=== PATIENT | male | born 1980 | race Caucasian/White ===

== ENCOUNTER → 2023-09-01 | Outpatient (CLI) | payer MEDICARE, MEDICAID, SELFPAY ==
--- NOTE | 2023-09-01 14:48 | RAD_ITS ---
STUDY: X-RAY - LEFT SHOULDER REASON FOR EXAM: Male, 42 years old. Bilateral shoulder pain TECHNIQUE: 4 view(s) of the shoulder. COMPARISON: None. FINDINGS: Normal glenohumeral articulation. Normal acromioclavicular joint. Normal acromion. Prior ORIF of the mid clavicular fracture. There is good alignment. The fracture is healed. Normal humeral head and visualized proximal humerus. The soft tissue structures are unremarkable. Normal visualized pulmonary apex. RAD/Shoulder min 2 Views IMPRESSION: Status post ORIF of the left midclavicular fracture. No acute abnormality is seen. Electronically Signed: Estrada Portillo MD at 15:29 EDT ,
--- NOTE | 2023-09-01 14:50 | RAD_ITS ---
STUDY: X-RAY - RIGHT SHOULDER REASON FOR EXAM: Male, 42 years old. SHOULDER PAIN TECHNIQUE: 4 view(s) of the shoulder. COMPARISON: None. FINDINGS: Normal glenohumeral articulation. Normal acromioclavicular joint. Normal acromion. Normal humeral head and visualized proximal humerus. The soft tissue structures are unremarkable. Normal visualized pulmonary apex. RAD/Shoulder min 2 Views IMPRESSION: Normal x-ray examination of the shoulder. Electronically Signed: Estrada Portillo MD at 15:15 EDT ,
== END | disposition home or self-care (01) ==
LOC: RAD 14:46
PROVIDERS: PCP Nurse Practitioner; Referring Provider Nurse Practitioner; Visit Provider Nurse Practitioner
DX: M25.511 Pain in right shoulder (principal); M25.512 Pain in left shoulder
CPT/HCPCS: 73030

== ENCOUNTER 2023-12-09 12:48 | Emergency (ER) | payer MEDICARE, MEDICAID, SELFPAY ==
[2023-12-09 12:48] VITALS: BP 125/83; PULSE 104; RESP 22; TEMP 37.2; O2SAT 94; BMI 29.2
--- NOTE | 2023-12-09 13:01 | EKG12_ITS ---
Test Reason : SOB Blood Pressure : / mmHG Vent. Rate : 090 BPM Atrial Rate : 090 BPM P-R Int : 162 ms QRS Dur : 074 ms QT Int : 320 ms P-R-T Axes : 080 037 037 degrees QTc Int : 391 ms Normal sinus rhythm Low voltage QRS Borderline ECG Confirmed by CLARISSA BRUCE, ZOILA ([id number]), assignment editor ANDRES IBARRA ([id number]) on 12/10/2023 1:25:35 PM Referred By: Confirmed By:ZOILA ROMO MD
--- NOTE | 2023-12-09 13:02 | EDS_ITS ---
HPI History of Present Illness Chief Complaint: Shortness of Breath Detail of Chief Complaint: Shortness of breath Informant: patient Narrative Narrative: Patient presents to the emergency department with complaint of shortness of breath that started at a week and a half ago. Describes a cough that at times is productive of some yellow phlegm. He said some nasal congestion. He denies fever. He had some chills. Patient does have history of asthma. He is a smoker. Denies sick contacts. Denies chest pain. [facility] Medical History (Updated 12/09/23 @ 14:[address] Nanci Kirk, DO) Aortic valve stenosis Atherosclerotic heart disease of [place] coronary artery without angina pectoris History of CVA (cerebrovascular accident) Leukemia Heart murmur Hypertension Heart disease Hyperlipemia Asthma Home Medications ?Medication ?Instructions ?Recorded ?Last Taken ?Type nitroglycerin 0.4 mg sublingual mg sublingual PRN 06/03/23 Unknown History tablet albuterol sulfate 90 mcg/actuation 2 puff inhalation Q4-6H PRN 09/02/23 Unknown Rx aerosol inhaler shortness of breath or wheezing #6.7 grams atorvastatin 40 mg tablet 40 mg PO QDAY #90 tabs 09/02/23 Unknown Rx duloxetine 60 mg capsule,delayed 60 mg PO DAILY #90 caps 09/02/23 Unknown Rx release metoprolol succinate 25 mg 25 mg PO QDAY #90 tabs 09/02/23 Unknown Rx tablet,extended release 24 hr omeprazole 40 mg capsule,delayed 40 mg PO QDAY #90 caps 09/02/23 Unknown Rx release doxycycline monohydrate 100 mg 100 mg PO BID #20 CAPSULES 12/09/23 Unknown Rx capsule prednisone 20 mg tablet 20 mg PO BID #10 tabs 12/09/23 Unknown Rx Allergy/AdvReac Type Severity Reaction Status Date / Time aspirin (From Racheal Aspirin) Allergy Intermediate hives Verified 12/09/23 12:49 Surgical History No history of previous surgery Social History adopted: No household members: other housing: other current occupational status: disabled pets and animals: No Smoking Status: Current every day smoker tobacco type: cigarettes Tobacco: How many years used: 22 alcohol intake: never substance use type: does not use caffeine: Yes (2) Type: coffee frequency: does not exercise do you feel safe at home: Yes ROS ROS ED Review of Systems ROS Unobtainable: other Constitutional Constitutional ED: Reports chills and lethargy; Denies fever(s), sweats or weight loss Eyes Eyes: Denies blurry vision, change in vision or diplopia ENT ENT ED: Denies rhinorrhea or sore throat Cardiovascular Cardiovascular: Denies chest pain, orthopnea or racing heartbeat Respiratory/Chest Respiratory/Chest: Reports cough, dyspnea and dyspnea on exertion; Denies orthopnea or sputum Gastrointestinal Gastrointestinal: Denies abdominal pain, diarrhea, nausea or vomiting Genitourinary Genitourinary ED: Denies dysuria, hematuria or urinary frequency Musculoskeletal Musculoskeletal: Denies arthralgias, back pain, myalgias or neck pain Integumentary Denies abscess, Abrasions or rash Neurologic Neurologic: Denies headache(s) or weakness Psychiatric Psychiatric: Denies anxiety, depression or suicidal thoughts Endocrine Endocrinology: Denies polydipsia, polyphagia or polyuria Hematologic/Lymphatic Hematologic/Lymphatic: Denies easy bleeding, easy bruising or lymphadenopathy Allergic/Immunologic Allergic/Immunologic ED: Denies mouth swelling, tongue swelling or urticaria EXAM Physical Exam Const Vital Signs: 12/09/23 12:48 12/09/23 13:21 12/09/23 13:24 Temperature 99 F Temperature Source Temporal Pulse Rate 104 H 92 Respiratory Rate 22 H 26 H Respiratory Effort Respiratory Pattern Tachypnea Blood Pressure 125/83 H Blood Pressure Mean 97 Pulse Ox 94 Oxygen Delivery Method Room Air Room Air 12/09/23 13:34 Temperature Temperature Source Pulse Rate Respiratory Rate Respiratory Effort Short of Breath Respiratory Pattern Tachypnea Blood Pressure Blood Pressure Mean Pulse Ox Oxygen Delivery Method Positive well nourished and well developed General Appearance ED: well developed and NAD HEENT Reports TM's clear and moist mucous membranes normocephalic and atraumatic; Negative for trauma or tenderness Tympanic Membrane ED: Yes TM's clear Eyes PERRL and EOMs intact bilaterally General Eye ED: Negative for pale conjunctiva or scleral icterus Neck no lymphadenopathy, supple and no JVD General: Negative for tenderness Chest Wall inspection of chest normal and palpation of chest normal Chest: Negative for tenderness Resp No normal respiratory effort and No clear to auscultation bilaterally Resp Narrative: Mild tachypnea, diminished breath sounds bilaterally with expiratory wheezes throughout. No accessory muscle use or retraction. Effort and Inspection: Negative for respiratory distress or pain with movement Auscultation: Negative for rhonchi, wheezes or diminished lung sounds Cardio regular rate, regular rhythm, S1 normal heart sound, S2 normal heart sound and no murmurs Peripheral Pulses: pulses 2+ throughout GI normal to inspection, nondistended, normoactive bowel sounds, soft to palpation, non-tender, non-distended and no masses Back/Spine no CVA tenderness and no thoracic nor lumbar tenderness Extremity normal to inspection General Extremety ED: Negative for edema General Extremity: Negative for edema Neuro oriented x3, CN's II-XII intact bilaterally, no sensory deficits noted and gait normal Sensorium / Orientation: awake, alert, oriented to person, oriented to place and oriented to time Motor Exam: strength 5/5 throughout and strength abnormal Psych mental status grossly normal Skin no rashes or lesions noted and no wounds MDM MDM MDM Narrative Medical decision making narrative: Patient presents with increasing shortness of breath for about a week and a half. He has had a cough. Has had some chills. In the differential would be asthma exacerbation versus asthmatic bronchitis versus pneumonia. He is having no chest pain. Low suspicion for PE. Given his lung exam and significant wheezing suspect this is asthma or reactive airway disease related to infection. CBC with differential showing a 10.5 with hemoglobin 14.5 and platelet count 283. Chemistries unremarkable. Lactate normal at 1.9. COVID flu and RSV testing was negative. 1 view chest x-ray was unremarkable. After treatment with aerosols and Solu-Medrol feeling much improved. Lung exams improved with just some wheezes noted. He feels markedly improved this point will discharge to home with prescription for a walk with his manager bank within next 3 to 5 days. To return to the emergency department if increasing shortness of breath or condition should worsen anyway Lab Data Attestation: I reviewed the patient's lab results. Labs: Laboratory Results - last 24 hr 12/09/23 13:10 WBC 10.5 RBC 4.98 Hgb 14.5 Hct 44.8 MCV 90.0 MCH 29.1 MCHC 32.4 RDW Std Deviation 45.9 H RDW Coeff of Terrance 14.0 Plt Count 283 MPV 9.7 Immature Gran % (Auto) 0.300 Neut % (Auto) 66.8 Lymph % (Auto) 18.6 L [place] % (Auto) 8.2 Eos % (Auto) 5.3 H Baso % (Auto) 0.8 Absolute Neuts (auto) 7.0 Absolute Lymphs (auto) 1.96 Nucleated RBC % 0 Sodium 137 Potassium 3.8 Chloride 104 Carbon Dioxide 27.0 Anion Gap 6 BUN 10 Creatinine 0.81 Estim Creat Clear Calc 122.25 Est GFR (MDRD) Af Amer 133 Est GFR (MDRD) Non-Af 110 BUN/Creatinine Ratio 12.3 Glucose 93 Lactic Acid 1.9 Calcium 9.5 Radiography Diagnostic Testing: Clinical Impression(s) from Imaging Studies Chest X-Ray 12/09/23 13:34 IMPRESSION: No radiographic evidence of acute cardiopulmonary disease. Electronically Signed: Russell Cox MD at 13:50 EDT , 1 view chest x-ray obtained interpreted by myself as no evidence of infiltrate or pneumothorax or acute disease process. Mild hyperinflation EKG Initial EKG: Attestation: I personally reviewed and interpreted this EKG as follows: Comments: Sinus rhythm with ventricular rate of 90 bpm with no acute ST segment changes Discharge Plan Triage Chief Complaint: Shortness of Breath ED Provider: Nanci Kirk Dx/Rx/DC Orders Clinical Impression: Asthmatic bronchitis Instructions: ED Bronchitis with Wheezing (Adult) Prescriptions: New doxycycline monohydrate 100 mg capsule 100 mg PO BID Qty: 20 0RF prednisone 20 mg tablet 20 mg PO BID Qty: 10 0RF No Action nitroglycerin 0.4 mg tablet, sublingual sublingual PRN Patient Comments: place 1 tablet under the tongue if needed every 5 minutes for peace... (REFER TO PRESCRIPTION NOTES). duloxetine 60 mg capsule,delayed release(DR/EC) 60 mg PO DAILY Qty: 90 0RF metoprolol succinate 25 mg tablet extended release 24 hr 25 mg PO QDAY Qty: 90 0RF atorvastatin 40 mg tablet 40 mg PO QDAY Qty: 90 0RF omeprazole 40 mg capsule,delayed release(DR/EC) 40 mg PO QDAY Qty: 90 0RF albuterol sulfate 90 mcg/actuation HFA aerosol inhaler 2 puff inhalation Q4-6H PRN (Reason: shortness of breath or wheezing) Qty: 6.7 1RF Primary Care Provider: Meagan Hernández Referrals: Meagan Hernández, [facility] [Primary Care Provider] - Activity Restrictions/Additional Instructions: Follow-up with your manager bank within the next 3 to 5 days Print Language: [place] Disposition Disposition: Home, Self Care
--- NOTE | 2023-12-09 13:10 | NURSING ---
NO OLD EKGS
[2023-12-09 13:18] LABS: Absolute Lymphocyte Count 1.96 X10^3/uL (0.83-4.51); Basophil# 0.08 X10^3/uL; Basophil% 0.8 % (0-1); Eosinophil# 0.56 X10^3/uL; Eosinophils% 5.3 % (0-5); Hematocrit 44.8 % (40-54); Hemoglobin 14.5 g/dL (13.0-16.5); Lymphocyte # 1.96 X10^3/ul (0.83-4.51); Lymphocyte % 18.6 % (19-41); Mean Corp Hgb Conc 32.4 g/dL (32-36); Mean Corpuscular Hgb 29.1 pg (27.0-32.0); Mean Platelet Vol. 9.7 fl (6.2-12.0); Monocyte# 0.86 X10^3/uL; Monocyte% 8.2 % (0-10); NRBC Flagged by Analyzer 0 % (0-5); Neutrophil # 7.04 X10^3/uL (2.7-7.7); Neutrophil % 66.8 % (47-70); Platelet Count 283 K/mm3 (150-450); RBC Distribution Width SD 45.9 fl (35.1-43.9); Red Blood Count 4.98 M/mm3 (4.6-6.2); White Blood Count 10.5 K/mm3 (4.4-11.0)
[2023-12-09] MEDS: Albuterol 2.5 MG/3 ML VIAL.NEB. INHALATION ×3 (13:18)
[2023-12-09] MEDS: Ipratropium/Albuterol Sulfate 3 ML AMPUL.NEB INHALATION (13:18)
[2023-12-09 13:21] VITALS: PULSE 92; RESP 26
[2023-12-09] MEDS: MethylPREDNISolone 125 MG/2 ML Vial IV (13:26)
[2023-12-09] MEDS: 0.9% Normal Saline (1000mL) 1,000 ML 150 ML IV (13:28)
--- NOTE | 2023-12-09 13:34 | RAD_ITS ---
INDICATION: dyspnea EXAMINATION/TECHNIQUE: X-RAY - XR Chest 1 View COMPARISON: No relevant prior comparison study available FINDINGS: LINES/DEVICES: None. LUNGS: No consolidation, edema or effusion. No pneumothorax. MEDIASTINUM AND CARDIOVASCULAR STRUCTURES: Cardiac silhouette not enlarged. Central airways and mediastinal contour are unremarkable. BONES AND SOFT TISSUES: Sideplate and screws securing a fracture of the left clavicle. RAD/Chest 1 View (Portable) IMPRESSION: No radiographic evidence of acute cardiopulmonary disease. Electronically Signed: Russell Cox MD at 13:50 EDT ,
[2023-12-09 13:57] LABS: Lactic Acid 1.9 mmol/L (0.4-1.9)
[2023-12-09 14:05] LABS: Anion Gap 6 (5-15); BUN 10 mg/dL (7-18); BUN/Creat Ratio 12.3 RATIO (10-20); Calcium,Total 9.5 mg/dL (8.5-10.1); Chloride 104 mmol/L (98-107); Creatinine, Serum 0.81 mg/dL (0.70-1.30); EST Glomerular Filtration Rate 110 mL/min (>60); Est Glom Filt Rate - Afr Amer 133 mL/min (>60); Estimated Creatinine Clearance 122.25 ml/min; Glucose 93 mg/dL (74-106); Potassium 3.8 mmol/L (3.5-5.1); Sodium Level 137 mmol/L (136-145)
[2023-12-09 14:28] VITALS: BP 120/72; PULSE 89; RESP 19; TEMP 36.8; O2SAT 97
== END 2023-12-09 14:36 | disposition home or self-care (01) ==
PROVIDERS: Emergency Provider Emergency Medicine; PCP Nurse Practitioner; Visit Provider Emergency Medicine
DX: J45.909 Unspecified asthma, uncomplicated (principal); I25.10 Atherosclerotic heart disease of native coronary artery without angina pectoris; I10 Essential (primary) hypertension; E78.5 Hyperlipidemia, unspecified; F17.210 Nicotine dependence, cigarettes, uncomplicated; Z79.899 Other long term (current) drug therapy
CPT/HCPCS: 71045; 80048; 83605; 85025; 87040; 87631; 93005; 94640; 96361; 96374; 99284; J7030; A4216